=== PATIENT | male | born 1965 | race Two or more races ===

== ENCOUNTER 2018-04-08 12:41 | Emergency (ER) | payer OTHER ==
[~2018-04-08] VITALS: Ht 170.2 cm; Wt 78.0 kg
[2018-04-08] MEDS ORDERED: ASPI-621 PO (12:56)
[2018-04-08] MEDS ORDERED: METO25TA35 PO (12:56)
[2018-04-08] MEDS ORDERED: LIDOCAINE-MPF 1%, 2ML ONE (12:59)
[2018-04-08] MEDS ORDERED: SODIUM CHLORIDE FLUSH 10ML SYR IVF ONE (13:00)
[2018-04-08] MEDS ORDERED: LIDOCAINE-MPF 1%, 5ML INFIL ONE (13:00)
[2018-04-08] MEDS ORDERED: PLEASE ENTER ALLERGIES MC SCH (13:00)
[2018-04-08 13:07] LABS: BASOPHILS # (AUTO) 0.07 x10^3/uL (0-0.1); BASOPHILS % (AUTO) 1 % (0-1); EOSINOPHILS # (AUTO) 0.21 x10^3/uL (0-0.4); EOSINOPHILS % (AUTO) 3 % (1-7); LYMPHOCYTES # (AUTO) 1.14 x10^3/uL (1-3.4); LYMPHOCYTES % (AUTO) 17 % (22-44); MD NO; MEAN CORPUSCULAR HEMOGLOBIN 31.1 pg (27.5-34.5); MEAN CORPUSCULAR HGB CONC 34.1 g/dL (33.2-36.2); MEAN CORPUSCULAR VOLUME 91.4 fL (81-97); MEAN PLATELET VOLUME 7.5 fL (7.4-10.4); MONOCYTES # (AUTO) 0.43 x10^3/uL (0.2-0.8); MONOCYTES % (AUTO) 6 % (2-9); NEUTROPHILS # (AUTO) 5.07 x10^3/uL (1.8-6.8); NEUTROPHILS % (AUTO) 73 % (42-75); PLATELET COUNT 217 x10^3/uL (130-400); RED BLOOD COUNT 4.72 x10^6/uL (4.38-5.82); RED CELL DISTRIBUTION WIDTH 13.8 % (9.4-14.8)
[2018-04-08 13:15] LABS: ALBUMIN 3.6 g/dL (3.4-5.0); ANION GAP 6 mmol/L (5-15); CALCIUM 8.9 mg/dL (8.5-10.1); CHLORIDE 101 mmol/L (98-107); CREATININE 1.21 mg/dL (0.7-1.3)
[2018-04-08 13:18] LABS: TROPONIN I < 0.015 ng/mL (0.000-0.045)
[2018-04-08 13:24] LABS: MICROSCOPIC NOT IND
[2018-04-08 13:28] LABS: CULTURE INDICATED? NO
[2018-04-08 14:29] VITALS: BP 152/88
== END 2018-04-08 15:17 | disposition home or self-care (01) ==
LOC: ED 15:11
DX: S01.112A Laceration without foreign body of left eyelid and periocular area, initial encounter (principal); R55 Syncope and collapse; G20 Parkinson's disease; X58.XXXA Exposure to other specified factors, initial encounter; Y93.89 Activity, other specified; Y92.89 Other specified places as the place of occurrence of the external cause; Y99.8 Other external cause status
CPT/HCPCS: 12051; 36415; 70450; 80048; 81003; 82040; 84484; 85025; 93005; 99285

== ENCOUNTER 2018-04-14 10:02 | Emergency (ER) | payer OTHER ==
[~2018-04-14] VITALS: Ht 170.2 cm; Wt 72.0 kg
[~2018-04-14 10:02] MED LIST: ASPI-621 PO; METO25TA35 PO
[2018-04-14 10:09] VITALS: BP 133/80
== END 2018-04-14 11:12 | disposition home or self-care (01) ==
LOC: ED 11:10
DX: S01.112D Laceration without foreign body of left eyelid and periocular area, subsequent encounter (principal); X58.XXXD Exposure to other specified factors, subsequent encounter
CPT/HCPCS: 99282

== ENCOUNTER 2020-02-16 06:47 | Outpatient (CLI) | payer OTHER ==
[~2020-02-16 06:47] MED LIST changes: -ASPI-621 PO; +ASPI81TA45 PO
[2020-02-16] MEDS ORDERED: REGADENOSON 0.4 MG/5 ML SYRINGE ONE (09:34)
== END 2020-02-16 23:59 | disposition home or self-care (01) ==
LOC: CFH 06:47
PROVIDERS: ATTEND Internal Medicine Cardiovascular Disease
DX: I35.1 Nonrheumatic aortic (valve) insufficiency (principal); I10 Essential (primary) hypertension; R07.89 Other chest pain
CPT/HCPCS: 78452; 93017; 93306; A9502; J2785